=== PATIENT | male | born 1985 | race Caucasian/White ===

== ENCOUNTER 2021-08-18 12:45 | Outpatient (CLI) | payer BC | END 2021-08-18 12:46 | disposition home or self-care (01) | LOC: CSHULT 12:45 | PROVIDERS: ATTEND Internal Medicine Endocrinology, Diabetes & Metabolism | DX: E25.0 Congenital adrenogenital disorders associated with enzyme deficiency (principal); N50.89 Other specified disorders of the male genital organs | CPT/HCPCS: 76870; 93976 ==

== ENCOUNTER 2025-05-27 08:19 | Outpatient (CLI) | payer BC | END 2025-05-27 08:20 | disposition home or self-care (01) | LOC: CSHULT 08:19 | PROVIDERS: ATTEND Internal Medicine Endocrinology, Diabetes & Metabolism | DX: Z86.39 Personal history of other endocrine, nutritional and metabolic disease (principal); E25.0 Congenital adrenogenital disorders associated with enzyme deficiency; N50.89 Other specified disorders of the male genital organs | CPT/HCPCS: 76870 ==